=== PATIENT | female | born 1965 | race Caucasian/White ===

== ENCOUNTER 2020-05-13 08:44 | Outpatient (CLI) | payer OTHER, SELFPAY ==
[2020-05-13 10:39] LABS: Alanine Aminotransferase 28 U/L (14-59); Albumin Level 3.9 g/dL (3.4-5.0); Alkaline Phosphatase 46 U/L (46-116); Anion Gap 5 mmol/L (8-16); Aspartate Amino Transferase 21 U/L (15-37); Bilirubin,Total 0.4 mg/dL (0.00-1.00); Blood Urea Nitrogen 14 mg/dL (7-18); Calcium 8.7 mg/dL (8.5-10.1); Carbon Dioxide 30 mmol/L (21-32); Chloride 107 mmol/L (98-108); Cholesterol 180 mg/dL (0-200); Estimated Glomerular Filt Rate > 60; Folic Acid 6.7 ng/mL (8.6->20); Glucose 98 mg/dL (70-99); HDL Direct 93 mg/dL (40-60); Iron 84 ug/dL (50-170); LDL Cholesterol Calculated 81 mg/dL (<130); Osmolality Calculated 294 mOsm/kg (285-295); Percent Iron Saturation 29 % (12-57); Potassium 4.8 mmol/L (3.5-5.1); Sodium 142 mmol/L (136-145); Thyroid Stimulating Hormone 1.71 uIU/mL (0.36-3.74); Total Protein 6.9 g/dL (6.4-8.2); Triglycerides 30 mg/dL (0-150); Vitamin B12 486 pg/mL (193-986)
== END 2020-05-13 08:45 | disposition home or self-care (01) ==
PROVIDERS: PCP Family Medicine; Visit Provider Physician Assistant
DX: Z00.00 Encounter for general adult medical examination without abnormal findings (principal)
CPT/HCPCS: 36415; 80053; 80061; 82607; 82746; 83540; 83550; 84443

== ENCOUNTER 2020-06-07 09:37 | Emergency (ER) | payer OTHER, SELFPAY ==
--- NOTE | ~2020-06-07 | XR_ITS ---
EXAMINATION: XR chest 1V portable DATE: 06/07/2020 10:30 INDICATION: Shortness of breath TECHNIQUE: frontal view of the chest was obtained. COMPARISON: Chest radiograph dated 09/28/2016 FINDINGS: The lungs remain clear with no focal airspace opacities, pulmonary edema, pleural effusion or pneumot horax. The cardiomediastinal silhouette is normal. Visualized bones and soft tissues are unremarkable . IMPRESSION: 1. No acute cardiopulmonary disease. Reviewed, dictated and finalized at location A. CLE DISMANTLER
--- NOTE | 2020-06-07 09:39 | ECG_ITS ---
Measurements Intervals [place] Rate: 69 P: 75 [place]: 168 QRS: 25 QRSD: 98 T: 62 QT: 394 QTc: 422 Interpretive Statements SINUS RHYTHM INCOMPLETE RIGHT BUNDLE BRANCH BLOCK CANNOT RULE OUT SEPTAL INFARCT, AGE INDETERMINATE ABNORMAL ECG Electronically Signed On 06-08-2020 13:42:00 SENIOR TECHNICAL PROGRAM MANAGER by Dorian Corral D.O.
[2020-06-07 09:45] VITALS: BP 179/93; PULSE 73; PULSE 83; RESP 18; TEMP 36.8; O2SAT 100
[2020-06-07] MEDS: KETOROLAC 30 MG/ML VIAL (*BKC) IV PUSH (10:07)
[2020-06-07 10:08] LABS: Basophils Absolute Auto 0.04 K/mm3 (0.00-0.10); Basophils Percent Auto 0.9 % (0.0-1.0); Eosinophils Absolute Auto 0.11 K/mm3 (0.02-0.50); Eosinophils Percent Auto 2.3 % (1.0-6.0); Hematocrit 43.7 % (35.0-49.0); Hemoglobin 14.5 g/dL (12.0-15.0); Immature Granulocyte Absolute 0.01 K/mm3 (0.00-0.00); Immature Granulocyte Percent A 0.2 % (0.0-0.0); Lymphocytes Absolute Auto 1.88 K/mm3 (1.10-4.50); Lymphocytes Percent Auto 40.1 % (18.0-42.0); Mean Corpuscular HGB Conc 33.2 g/dL (32.0-36.0); Mean Corpuscular Hemoglobin 32.7 pg (27.0-31.0); Mean Corpuscular Volume 98.4 fL (78.0-102.0); Mean Platelet Volume 9.7 fl (9.2-11.8); Monocytes Absolute Auto 0.38 K/mm3 (0.10-0.90); Monocytes Percent Auto 8.1 % (2.0-11.0); Neutrophils Absolute Auto 2.3 K/mm3 (1.7-7.2); Neutrophils Percent Auto 48.4 % (50.0-70.0); Platelet Count Result 285 K/mm3 (150-420); Red Blood Count 4.44 M/mm3 (4.20-5.40); Red Cell Distribution Width 11.7 % (11.6-14.4); White Blood Count 4.7 K/mm3 (4.8-10.8)
[2020-06-07 10:12] VITALS: BP 135/75; PULSE 66; RESP 18; O2SAT 100
[2020-06-07 10:25] LABS: D Dimer 0.19 mg/L (0.19-0.50); Partial Thromboplastin Time 25.9 SEC (23.90-30.70); Prothrombin Time 10.6 Seconds (9.50-12.10)
[2020-06-07 10:26] LABS: Alanine Aminotransferase 26 U/L (14-59); Albumin Level 4.2 g/dL (3.4-5.0); Alkaline Phosphatase 51 U/L (46-116); Anion Gap 11 mmol/L (8-16); Aspartate Amino Transferase 18 U/L (15-37); Bilirubin,Total 0.5 mg/dL (0.00-1.00); Blood Urea Nitrogen 13 mg/dL (7-18); Calcium 8.9 mg/dL (8.5-10.1); Carbon Dioxide 27 mmol/L (21-32); Chloride 105 mmol/L (98-108); Estimated CRCL calculation 62 ml/min; Estimated Glomerular Filt Rate > 60; Glucose 90 mg/dL (70-99); Lipase 107 U/L (73-393); Osmolality Calculated 296 mOsm/kg (285-295); SARS-CoV-2 Ag Negative (Negative); Sodium 143 mmol/L (136-145); Total Protein 7.8 g/dL (6.4-8.2)
[2020-06-07 10:27] LABS: Troponin I 4.4 ng/L (0.00-60.4)
--- NOTE | 2020-06-07 10:32 | ED.CHESTPAIN ---
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 Currently she is afebrile satting at 100% on room air with a blood pressure 135/75. Chest pain is reproducible with some palpation. Patient denies any abdominal pain no flank pain no dysuria. MD complaint: chest pain Onset (ago): week(s) Timing of current episode: episodic Prior episodes: Yes Onset: during rest Pain location: substernal Pain radiation: none Severity: moderate Pain scale (0-10): 7 Quality: aching and heaviness Exacerbating factors: nothing Related Data Allergies Allergy/AdvReac Type Severity Reaction Status Date / Time No Known Allergies Allergy Verified 04/28/20 15:05 Review of Systems Review of Systems: All systems reviewed & are unremarkable except as noted in HPI and below PMFSH Past Medical History Medical History Lumbar radiculopathy Family History Family History Sibling Carcinoma of colon Other Family history of emphysema Family history of lung cancer Social History Social History Smoking status: Former smoker (Quit 2003) Second hand tobacco smoke exposure: No Smoking end date: 06/27/03 Alcohol intake: current Drinks per week: 5 Substance use: never Substance use type: does not use Gender identity (if verbalized by the patient): Female Spiritual care concerns: No Agree to blood products: Yes Exam Const: General: cooperative, healthy appearing, comfortable, no acute distress, well developed, alert, awake and Physically active HENMT: Head: normal to inspection General nose exam: Normal external nose present Face and sinus: normal facial exam Mouth: Yes Normal oral and palatal mucosa present Teeth and gingiva: dentition normal and gingiva normal Eyes: General: appearance normal, both eyes and all related structures Eyelids: eyelids normal Conjunctivae: conjunctivae normal Sclera: sclerae normal EOM: EOMs intact bilaterally Neck: Neck: normal visual inspection, full ROM, no lymphadenopathy and no meningeal signs Chest: Chest palpation & inspection: normal inspection of the chest and normal palpation of entire chest wall Resp: Effort & Inspection: normal respiratory effort and able to speak in complete sentences Auscultation: clear to auscultation bilaterally Cardio: Jugular venous distension: no JVD Palpation: normal PMI Rate: regular rate Rhythm: regular rhythm Heart sounds: S1 normal heart sound present GI: Inspection: normal to inspection Percussion: Yes normal to percussion Skin: General skin exam: normal color Neuro: General: oriented to person, oriented to place, oriented to time and patient oriented x3 Extrem: General: normal to inspection, full ROM and capillary refill normal Psych: Appearance: grossly normal and well kempt Mental Status: mental status grossly normal Speech and movement: Normal speech and movement present and Slowed movement present (Neuro) Affect: normal affect Course Course Emergency Course: reassessment of patient pain level has improved patient feels more comfortable blood pressure initially was 179/83 when she 1st walked in, repeat blood pressure 113/67 danielaer reviewed labs x-rays any EKGs with patient and asked her to follow-up with primary care physician. Vital Si
[2020-06-07 10:38] VITALS: BP 113/67; PULSE 72; RESP 18; O2SAT 100
== END 2020-06-07 10:43 | disposition home or self-care (01) ==
PROVIDERS: Emergency Provider Emergency Medicine; PCP Family Medicine
DX: R07.81 Pleurodynia (principal)
CPT/HCPCS: 36415; 71045; 80053; 83690; 84484; 85025; 85380; 85610; 85730; 87040; 87426; 93005; 96374; 99283; 99284; J1885

== ENCOUNTER 2021-05-12 11:39 | Emergency (ER) | payer OTHER, SELFPAY ==
[2021-05-12] VITALS (18 sets, daily range): BP systolic 131–173; BP diastolic 65–89; PULSE 60–81; RESP 16–81; TEMP 36.5–36.6; O2SAT 99–100
--- NOTE | ~2021-05-12 | XR_ITS ---
EXAMINATION: XR chest 2V EXAM DATE: 05/12/2021 12:14 INDICATION: Left-sided chest, back pain. TECHNIQUE: Frontal and lateral projections of the chest obtained and reviewed. Comparison is made to prior examination from 06/07/2020. FINDINGS: There is moderate hyperinflation. The lungs are clear. There are no pleural effusions. T he cardiomediastinal silhouette is within normal limits. There is no pneumothorax suspected. The angela anne marie and soft tissues are unremarkable. IMPRESSION: 1. No acute cardiopulmonary findings. 2. Hyperinflation. Reviewed, dictated and finalized at location B. OYEE OPERATIONS EXAMINER
--- NOTE | 2021-05-12 11:47 | PC.NURSE ---
PT WENT TO BATHROOM IMMEDIATELY AFTER ARRIVAL.
--- NOTE | 2021-05-12 11:54 | ECG_ITS ---
Measurements Intervals [place] Rate: 66 P: 75 [place]: 160 QRS: 27 QRSD: 96 T: 57 QT: 407 QTc: 429 Interpretive Statements SINUS RHYTHM POSSIBLE LEFT ATRIAL ENLARGEMENT INCOMPLETE RIGHT BUNDLE BRANCH BLOCK BASELINE ARTIFACT- II, III, AVR, AVL, AVF BORDERLINE ECG Electronically Signed On 05-12-2021 14:51:08 CRAYON GRADER by Dorian Corral D.O.
[2021-05-12 12:15] LABS: Basophils Percent Auto 0.7 % (0.2-1.2); Hematocrit 42.6 % (37.0-47.0); Hemoglobin 14.5 g/dL (12.0-15.0); Immature Granulocyte Absolute 0.01 K/mm3 (0.00-0.031); Immature Granulocyte Percent A 0.2 % (0-0.5); Lymphocytes Percent Auto 41.8 % (18.3-44.2); Mean Corpuscular Hemoglobin 32.9 pg (26-34); Mean Corpuscular Volume 96.6 fl (80-100); Mean Platelet Volume 9.4 fl (7.4-10.4); Monocytes Absolute Auto 0.3 K/mm3 (0.1-0.6); Monocytes Percent Auto 7.9 % (2.6-8.5); Neutrophils Percent Auto 48.4 % (45.5-73.1); Platelet Count Result 248 k/mm3 (150-375); Red Blood Count 4.41 M/mm3 (4.2-5.4); Red Cell Distribution Width 11.4 % (11.5-14.5); White Blood Count 4.1 K/mm3 (4.5-10.0)
[2021-05-12 12:25] LABS: INR 0.9
[2021-05-12 12:26] LABS: Partial Thromboplastin Time 27.3 SECONDS (22.3-36.8)
[2021-05-12 12:37] LABS: Anion Gap 6 mmol/L (8-16); Blood Urea Nitrogen 16 mg/dL (7-17); Calcium 9.1 mg/dL (8.4-10.2); Carbon Dioxide 29 mmol/L (22-30); Chloride 100 mmol/L (98-107); Estimated CRCL calculation 79 ml/min; Estimated Glomerular Filt Rate > 60; Glucose 100 mg/dL (65-110); Potassium 4.5 mmol/L (3.4-5.0); Sodium 135 mmol/L (137-145)
[2021-05-12 12:47] LABS: Troponin I < 0.012 ng/mL (0.000-0.034)
[2021-05-12 16:36] LABS: Troponin I < 0.012 ng/mL (0.000-0.034)
[2021-05-12 16:41] LABS: D Dimer 0.29 ug/mL (<0.48)
--- NOTE | 2021-05-12 16:53 | ED.CHESTPAIN ---
HPI - Chest Pain General Chief Complaint: Chest Pain Stated Complaint: CP, BACK PAIN, ONSET COUPLE HRS AGO Time Seen by Provider: 05/12/21 16:08 Source: patient Mode of arrival: ambulatory Limitations: no limitations History of Present Illness HPI narrative: 56-year-old female Here for chest pain She complains that she had a brief episode about a week ago Today she notes waking up with chest discomfort present on the left side and to her mid back It has somewhat of a pleuritic component to it, but is more with exhalation than with inhalation Also exacerbated by exercise or movement and relieved by lying down on her right side She does not have nausea or vomiting, shortness of breath or productive cough, fever, or diuresis She is basically healthy, does not smoke, no history of high cholesterol high blood pressure or high blood sugar Related Data Allergies Allergy/AdvReac Type Severity Reaction Status Date / Time No Known Allergies Allergy Verified 05/12/21 15:54 Review of Systems Review of Systems: All systems reviewed & are unremarkable except as noted in HPI and below Constitutional: Constitutional: Reports no additional constitutional complaints, Denies chills, Denies fever(s) and Denies headache(s) Eyes: Eyes: Reports no additional eye complaints and Denies change in vision ENT: Denies headache(s) and Denies sore throat Cardiovascular: Cardiovascular: Reports chest pain, Reports chest pain at rest, Reports chest pain with activity and Denies dyspnea Respiratory: Respiratory: Denies cough, Denies excessive phlegm production, Reports pain on inspiration and Denies dyspnea Gastrointestinal: Gastrointestinal: Denies abdominal pain, Denies diarrhea and Denies vomiting Genitourinary: Genitourinary: Denies urinary frequency and Denies dysuria Musculoskeletal: Musculoskeletal: Denies deformity, Denies arthralgias, Denies joint swelling and Denies numbness Integumentary/Breasts: Skin/Breast: Denies rash and Denies wounds Neurologic: Denies headache(s), Denies focal weakness and Denies numbness Psychiatric: Psychiatric: Reports no additional psychiatric complaints Endocrine: Endocrine: Reports no additional endocrine complaints Hematologic/Lymphatic: Hematologic/Lymphatic: Reports no additional hematologic/lymphatic complaints Allergic/Immunologic: Allergic/Immunologic: Reports no additional allergic/immunologic complaints PMFSH Past Medical History Medical History Lumbar radiculopathy Family History Family History Sibling Carcinoma of colon Other Family history of emphysema Family history of lung cancer Social History Social History Second hand tobacco smoke exposure: No Smoking end date: 06/27/03 Alcohol intake: current Drinks per week: 5 Substance use: never Substance use type: does not use Gender identity (if verbalized by the patient): Female Sexual Orientation (if Verbalized by the Patient): Straight or Heterosexual Spiritual care concerns: No Agree to blood products: Yes Exam Const: General: cooperative, healthy appearing and no acute distress Orientation/consciousness: patient oriented x3 (alert) HENMT: Head: normal to inspection, normocephalic and atraumatic Ears: external ears normal General nose exam: no epistaxis Eyes: Conjunctivae: conjunctivae normal EOM: EOMs intact bilaterally Neck: Neck: normal visual inspection, supple and no JVD Chest: Chest palpation & inspection: normal inspection of the chest, no localized rib tenderness and no tenderness Resp: Effort & Inspection: normal respiratory effort and not labored Auscultation: clear to auscultation bilaterally, no rales, no rhonchi, no wheezes and other (BS =) Cardio: Rate: regular rate Rhythm: regular rhythm Heart sounds: no murmurs GI:
[2021-05-12 19:00] LABS: Troponin I < 0.012 ng/mL (0.000-0.034)
== END 2021-05-12 18:33 | disposition home or self-care (01) ==
PROVIDERS: Emergency Provider Emergency Medicine; PCP Family Medicine
DX: R07.89 Other chest pain (principal); Z87.891 Personal history of nicotine dependence; I45.10 Unspecified right bundle-branch block; R94.31 Abnormal electrocardiogram [ECG] [EKG]
CPT/HCPCS: 36415; 71046; 80048; 84484; 85025; 85380; 85610; 85730; 93005; 99284

== ENCOUNTER 2021-12-16 14:57 | Emergency (ER) | payer OTHER, SELFPAY ==
--- NOTE | ~2021-12-16 | XR_ITS ---
EXAM: [id number] DATE: 12/16/2021 15:21 HISTORY: fall, pain left side ribs mostly lateral aspect . COMPARISON: 05/12/2021. FINDINGS: Lungs are clear. Normal cardiomediastinal silhouette. Normal mineralization. No fracture or dislocation. No lytic or blastic lesion. Joint spaces are maintained. No erosion or periosteal herring e. Soft tissues within normal limits. IMPRESSION: No acute osseous finding in the left ribs. Reviewed, dictated and finalized at location K.
[2021-12-16 15:03] VITALS: BP 156/80; PULSE 70; RESP 16; TEMP 37.6; O2SAT 100
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
== END 2021-12-16 15:40 | disposition home or self-care (01) ==
PROVIDERS: Emergency Provider Nurse Practitioner; PCP Family Medicine
DX: S20.212A Contusion of left front wall of thorax, initial encounter (principal); W54.1XXA Struck by dog, initial encounter; M54.16 Radiculopathy, lumbar region; Z87.891 Personal history of nicotine dependence
CPT/HCPCS: 71101; 99213; G0463

== ENCOUNTER 2022-07-22 10:33 | Outpatient (CLI) | payer OTHER, SELFPAY ==
--- NOTE | ~2022-07-22 | CT_ITS ---
CT Scan of the Chest without Contrast: Clinical Indication: Lung nodule Technique: Contiguous sections were acquired throughout the chest without intravenous contrast. Dose reduction technique was used on this scan by utilizing automated exposure control and iterative recon struction technique. The dose-length product (DLP) was 62.10 mGy-cm. Findings: There is no evidence of any significant mediastinal, hilar or axillary lymphadenopathy. The mediastin al soft tissues appear normal. There is no evidence of pleural or pericardial effusion. The lungs are clear. No pulmonary nodules or infiltrates are noted. Images through the upper abdomen reveal probable hepatic and left renal cysts complex likely left hyd ronephrosis.. Impression: No significant abnormalities seen. No pulmonary nodule identified. Reviewed, dictated and finalized at [facility]. IVING INSPECTOR Impression: No significant abnormalities seen. No pulmonary nodule identified.
== END 2022-07-22 10:34 | disposition home or self-care (01) ==
PROVIDERS: PCP Family Medicine; Visit Provider Family Medicine
DX: R91.1 Solitary pulmonary nodule (principal)
CPT/HCPCS: 71250

== ENCOUNTER 2022-09-07 07:54 | Outpatient (CLI) | payer OTHER, SELFPAY ==
--- NOTE | ~2022-09-07 | MM_ITS ---
EXAMINATION: MM screening sandeep BI w vamshi HISTORY: Screening mammogram TECHNIQUE: Craniocaudal and mediolateral oblique 3-D tomosynthesis images were obtained and synthetic 2-D images were generated. CAD analysis was submitted and interpreted. COMPARISON: No prior mammogram is available for comparison at this institution. BREAST PARENCHYMAL COMPOSITION: There are scattered areas of fibroglandular density. FINDINGS: There is no evidence of suspicious mass, calcification, or architectural distortion to sugg est malignancy in either breast. IMPRESSION: 1. No mammographic evidence of malignancy. 2. Recommend routine screening mammography in one year. BI-RADS Category 1: Negative Reviewed, dictated and finalized at location A.
--- NOTE | ~2022-09-07 | DEXA_ITS ---
Bone Density Report Name: ANNA LINDQUIST Age: 57 Sex: Female Ethnicity: White Date of : 1965 Indication: postmenopausal; screening for osteoporosis; Referring Provider: RON FISHER Study: Bone densitometry was performed. Exam Date: September 07, 2022 Accession number: [id number] Bone Density: Region BMD T-score Z-score Classification AP Spine(L1-L4) 0.945 -0.9 0.4 Normal Femoral Neck (Left) 0.621 -2.1 -0.8 Osteopenia Total Hip (Left) 0.796 -1.2 -0.3 Osteopenia Femoral Neck (Right) 0.661 -1.7 -0.5 Osteopenia Total Hip (Right) 0.827 -0.9 -0.1 Normal Total Hip Mean 0.812 -1.1 -0.2 Osteopenia World Health Organization criteria for BMD impression classify patients as: Normal (T-score at or above -1.0), Osteopenia (T-score between -1.0 and -2.5), or Osteoporosis (T-score at or below -2.5). 10-year Fracture Risk(1): Major Osteoporotic Fracture 9.0% Hip Fracture 1.1% Reported Risk Factors: [place] (), Neck BMD=0.621, BMI=24.0 (1) FRAX(R) Version 3.08. Fracture probability calculated for an untreated patient. Fracture probability may be lower if the patient has received treatment. Clinical Information Provided by Patient: Patient maximum height was 65 Menopause Age: 51 Drinks caffeinated beverages Onset of menses at age 11 Number of children 2 Impression: The patient has low bone mass, based on the Left Femoral Neck T-score. The patient has an estimated ten-year risk of hip fracture of 1.1% and an estimated ten-year risk of major fracture of 9%, based on the WHO FRAX algorithm. Discussion: BONE DENSITY IS LOW AT ONE OR MORE SKELETAL SITES. This patient's lowest T-score is low at one or more skeletal sites. It meets the World Health Organization's (WHO) criteria for ?low bone mass? (T-score between -1.0 and -2.5). The patient's 10-year risk of fracture as calculated by FRAX is less than the threshold where pharmacological therapy is recommended by the National Osteoporosis Foundation (NOF). However, all treatment decisions require clinical judgment and consideration of individual patient factors, including patient preferences, comorbidities, previous drug use, risk factors not captured in the FRAX model (e.g., frailty, falls, vitamin D deficiency, increased bone turnover, interval significant decline in bone density) and possible under or overestimation of fracture risk by FRAX. The patient should follow a healthful lifestyle (good nutrition with adequate calcium and vitamin D, and appropriate weight-bearing exercise). Follow-Up: Consider repeating this study in 2 to 3 years to reassess this patient's status, or sooner if there is some new clinical indication. Reported by: WILLEM on 09/07/2022 8:24:00 AM. Reviewed, dictate
== END 2022-09-07 07:55 | disposition home or self-care (01) ==
PROVIDERS: PCP Family Medicine; Visit Provider Family Medicine
DX: Z12.31 Encounter for screening mammogram for malignant neoplasm of breast (principal); Z78.0 Asymptomatic menopausal state; M85.89 Other specified disorders of bone density and structure, multiple sites
CPT/HCPCS: 77063; 77067; 77080

== ENCOUNTER 2023-04-28 07:36 | Outpatient (CLI) | payer OTHER, SELFPAY ==
[2023-04-28 08:18] LABS: Alanine Aminotransferase 23 U/L (14-59); Albumin Level 3.4 g/dL (3.4-5.0); Alkaline Phosphatase 57 U/L (46-116); Anion Gap 7 mmol/L (8-16); Aspartate Amino Transferase 14 U/L (15-37); Bilirubin,Total 0.3 mg/dL (0.00-1.00); Blood Urea Nitrogen 19 mg/dL (7-18); Carbon Dioxide 31 mmol/L (21-32); Chloride 106 mmol/L (98-108); Cholesterol 195 mg/dL (0-200); Estimated Glomerular Filt Rate > 60; Glucose 86 mg/dL (70-99); HDL Direct 74 mg/dL (40-60); LDL Cholesterol Calculated 109 mg/dL (<130); Osmolality Calculated 299 mOsm/kg (285-295); Potassium 4.6 mmol/L (3.5-5.1); Sodium 144 mmol/L (136-145); Total Protein 6.4 g/dL (6.4-8.2); Triglycerides 62 mg/dL (0-150)
== END 2023-04-28 07:37 | disposition home or self-care (01) ==
LOC: CHSLAB 07:38
PROVIDERS: PCP Family Medicine; Visit Provider Physician Assistant Medical
DX: E78.2 Mixed hyperlipidemia (principal)
CPT/HCPCS: 36415; 80053; 80061

== ENCOUNTER 2023-05-05 07:44 | Outpatient (CLI) | payer OTHER, SELFPAY ==
[2023-05-05 08:34] LABS: Alanine Aminotransferase 27 U/L (14-59); Albumin Level 3.4 g/dL (3.4-5.0); Alkaline Phosphatase 61 U/L (46-116); Anion Gap 9 mmol/L (8-16); Aspartate Amino Transferase 17 U/L (15-37); Bilirubin,Total 0.5 mg/dL (0.00-1.00); Blood Urea Nitrogen 18 mg/dL (7-18); Carbon Dioxide 28 mmol/L (21-32); Chloride 104 mmol/L (98-108); Estimated Glomerular Filt Rate > 60; Glucose 100 mg/dL (70-99); Osmolality Calculated 293 mOsm/kg (285-295); Potassium 4.3 mmol/L (3.5-5.1); Sodium 141 mmol/L (136-145); Total Protein 6.4 g/dL (6.4-8.2)
== END 2023-05-05 07:45 | disposition home or self-care (01) ==
LOC: CHSLAB 07:45
PROVIDERS: PCP Family Medicine; Visit Provider Physician Assistant Medical
DX: E78.2 Mixed hyperlipidemia (principal)
CPT/HCPCS: 36415; 80053

== ENCOUNTER 2023-06-08 00:10 | Day surgery (SDC) | payer OTHER, SELFPAY ==
[2023-05-25 12:13] VITALS: BMI 23.0
--- NOTE | 2023-06-06 11:37 | SUR.PREOP ---
Patient called regarding upcoming procedure. Message left on patient's voicemail regarding preop instructions, appointment times, and procedure prep.
[2023-06-08 09:00] VITALS: BP 138/72; PULSE 77; RESP 18; TEMP 36.5; O2SAT 100; BMI 23.3
[2023-06-08] MEDS: LACTATED RINGERS 1,000 ML 150 ML IV CONT (09:20)
--- NOTE | 2023-06-08 10:06 | P.PNAN_ITS ---
Anes - Initial Pre Proc Eval Procedure: Operation Date: 06/08/23 10:00 Proposed Procedures p Screening Colonoscopy - Destin Mckay MD Date/Time: 06/08/23 10:06 Surgeon: Destin Mckay MD Pre Op Diagnosis: neoplasm screening Patient Data Age: 58 Gender: F Height: 1.65 m Weight: 63.7 kg Last Vital Signs Temp 97.7 F 06/08/23 09:00 Pulse 77 06/08/23 09:00 Resp 18 06/08/23 09:00 BP 138/72 06/08/23 09:00 Pulse Ox 100 06/08/23 09:00 O2 Del Method Room Air 06/08/23 09:00 Allergies Allergy/AdvReac Type Severity Reaction Status Date / Time No Known Allergies Allergy Verified 06/08/23 09:08 Home Medications Medication Instructions Recorded Confirmed Type tramadol 50 mg tablet 50 mg PO Q6H PRN pain #90 tabs 05/16/23 06/08/23 Rx Patient hx anesthesia problems: none Family hx anesthesia problems: none Results Review: All pre-operative results and documents have been reviewed as part of the pre- operative evaluation. [facility] Past Medical History Medical History Lumbar radiculopathy Family History Family History Sibling Carcinoma of colon Other Family history of emphysema Family history of lung cancer Social History Social History (Updated 07/07/22 @ 09:04 by Heidi Yu CMA) Smoking status: Former smoker Tobacco type: cigarettes Second hand tobacco smoke exposure: No Smoking end date: 06/27/03 Alcohol intake: current Drinks per week: 5 Alcohol use details: 3 nights a week Substance use: never Substance use type: does not use Lack of Transportation: No Lack of Food: Never True Current Housing: I Have Housing Concerned About Future Housing: No Difficulty Paying Gas/Electric Bills: No Difficulty Paying for Meds: No Currently Unemployed: No Education: Trade/Vocational Certificate Difficulty w/ Childcare or Family Care: No Living arrangements: with family Occupation/Education: occupation Gender identity (if verbalized by the patient): Female Sexual Orientation (if Verbalized by the Patient): Straight or Heterosexual Spiritual care concerns: No Agree to blood products: Yes Anes - Eval Final PreProcedure Day of Procedure 06/08/23 10:06 Patient weight: normal Heart: regular rate and rhythm Lungs: clear to auscultation Airway: Mallampati scale class II Neurological: alert and oriented Last oral intake: >/= 8 hours ASA classification: II Emergent: no Anesthetic plan: proceed Anesthesia type and monitoring: general GIVS and standard monitoring Results Review: All pre-operative results and documents have been reviewed as part of the pre- operative evaluation. Informed Consent: The patient's anesthetic plan and its attendant risks and benefits were discussed with the patient/family/POA. Questions were solicited and answers provided to the satisfaction of the patient/family/POA.
--- NOTE | 2023-06-08 10:08 | PM.HPGS ---
History of Present Illness History of Present Illness Consent: Risks, benefits, and alternatives have been discussed and questions answered. Patient agrees to proceed with procedure. Chief complaint: neoplasm screening Narrative: Taylor Murphy is a 58 year old female with last colonoscopy 5 years ago, sister had colon cancer Review of Systems Constitutional: Constitutional: Denies headache(s) and Denies weakness Eyes: Eyes: Denies blurry vision ENT: Reports Normal hearing present, Denies headache(s) and Denies neck pain Cardiovascular: Cardiovascular: Denies chest pain and Denies dyspnea Respiratory: Respiratory: Denies dyspnea Gastrointestinal: Gastrointestinal: Reports no additional gastrointestinal complaints Genitourinary: Genitourinary: Denies dysuria Musculoskeletal: Musculoskeletal: Denies neck pain Integumentary/Breasts: Skin/Breast: Denies dry skin Neurologic: Reports Normal hearing present, Denies headache(s) and Denies weakness Psychiatric: Psychiatric: Denies anxiety Endocrine: Endocrine: Denies change in body appearance Hematologic/Lymphatic: Hematologic/Lymphatic: Denies easy bleeding Allergic/Immunologic: Allergic/Immunologic: Denies urticaria PMFSH Past Medical History Medical History (Updated 06/08/23 @ 10:09 by Destin Mckay MD) Family history of colon cancer Lumbar radiculopathy Family History Family History Sibling Carcinoma of colon Other Family history of emphysema Family history of lung cancer Social History Social History (Updated 07/07/22 @ 09:04 by Heidi Yu CMA) Smoking status: Former smoker Tobacco type: cigarettes Second hand tobacco smoke exposure: No Smoking end date: 06/27/03 Alcohol intake: current Drinks per week: 5 Alcohol use details: 3 nights a week Substance use: never Substance use type: does not use Lack of Transportation: No Lack of Food: Never True Current Housing: I Have Housing Concerned About Future Housing: No Difficulty Paying Gas/Electric Bills: No Difficulty Paying for Meds: No Currently Unemployed: No Education: Trade/Vocational Certificate Difficulty w/ Childcare or Family Care: No Living arrangements: with family Occupation/Education: occupation Gender identity (if verbalized by the patient): Female Sexual Orientation (if Verbalized by the Patient): Straight or Heterosexual Spiritual care concerns: No Agree to blood products: Yes Meds Home Medications and Allergies Home Medications Medication Instructions Recorded Confirmed Type tramadol 50 mg tablet 50 mg PO Q6H PRN pain #90 tabs 05/16/23 06/08/23 Rx Allergies Allergy/AdvReac Type Severity Reaction Status Date / Time No Known Allergies Allergy Verified 06/08/23 09:08 Vital Signs Vital Signs - 24 hr 06/08/23 09:00 Temperature 97.7 F Pulse Rate 77 Respiratory Rate 18 Blood Pressure 138/72 Pulse Oximetry 100 Oxygen Delivery Room Air Exam Const: General: comfortable and no acute distress HENMT: Face/Nose/Sinus: Normal nares present Eyes: General: appearance normal, both eyes and all related structures Neck: Neck: no JVD Resp: Auscultation: clear to auscultation bilaterally Cardio: Rate: regular rate Rhythm: regular rhythm GI: Inspection: non-distended GI Palp: Yes Soft to palpation Skin: General skin exam: normal color Neuro: General: gait normal Speech: normal speech Extrem: General: normal to inspection Psych: Mental Status: mental status grossly normal Assessment and Plan Assessment and plan (1) Family history of colon cancer: Code(s): Z80.0 - Family history of malignant neoplasm of digestive organs Status: Acute Assessment and Plan: colonoscopy
[2023-06-08 10:29] VITALS: BP 115/81; PULSE 79; RESP 18; O2SAT 100
[2023-06-08 10:39] VITALS: BP 125/76; PULSE 80; RESP 20; O2SAT 100
[2023-06-08 10:49] VITALS: BP 118/76; PULSE 77; RESP 18; O2SAT 100
== END 2023-06-08 11:00 | disposition home or self-care (01) ==
PROVIDERS: PCP Family Medicine; Visit Provider Internal Medicine Gastroenterology
PROC: 0DJD8ZZ Inspection of Lower Intestinal Tract, Via Natural or Artificial Opening Endoscopic (ICD-10-PCS; CPT 45378; principal; 2023-06-08 10:00)
DX: Z12.11 Encounter for screening for malignant neoplasm of colon (principal); K64.8 Other hemorrhoids; Z87.891 Personal history of nicotine dependence
CPT/HCPCS: 45378; J7120

== ENCOUNTER 2025-01-28 09:30 | Outpatient (CLI) | payer BC, SELFPAY ==
--- OUTSIDE RECORDS SUMMARY | 2025-01-28 09:43 | XMS_ITS | Clinical Summary ---
Author Organization [facility] Address [address] [place] [id number] Care Team Providers Care Filler Shaker Name Role Phone Unknown, Notinfile Primary Care Provider Unavail able Allergies Active Allergy Reactions Criticality Noted Date Comments Brimonidine Eye irritation Medium 04/20/2021 Medications traMADoL (ULTRAM) 50 mg tablet TAKE 1 TABLET BY MOUTH EVERY 6 TO 8 HOURS NEEDED FOR PAIN 1 Active bepotastine besilate 1.5 % dropsIndications:A llergic Conjunctivitis Administer 1 drop into affected eye(s) 2 (two) times a day 5 mL 1 1 Active loteprednol (LOTEMAX) 0.5 % ophthalmic suspension Administer 1 drop into both eyes 2 (two) times a day 5 mL 1 Active Active Problems Problem Noted Date Diagnosed Date Acute follicular conjunctivitis of both eyes Assessment & Plan (04/20/2021 2:05 PM CDT): Secondary to Brimonidine Dc Lumify Maxitrol drops (gtts) QID both eyes (OU) FU 1 week Cool compresses No other meds Assessment & Plan (01/20/2021 9:51 AM CDT): Patient called and little improvement on lotemax. Add bepreve, continue lotemax. If no improvement in 2-3 days, RTC for visit Assessment & Plan (01/12/2021 9:23 AM CDT): Viral conjuncitivits vs chronic allergic No cornea involvement both eyes (OU), anterior chamber (AC) quiet both eyes (OU) Patient already has Rx for lotemax from nurse practitioner (GARNISHMENT SPECIALIST) Stop pink eye drops (gtts) OK to still use Lumify every day (qd) Start Lotemax QID, if no improvement by end of the week will RTC Enlarged lymph nodes 07/16/2020 Breast cancer screening 07/16/2020 Encounter for screening colonoscopy 03/09/2018 Overview (03/09/2018): Added automatically from request for surgery [id number] Family hx of colon cancer 03/09/2018 Overview (03/09/2018): Added automatically from request for surgery [id number] Surgical History Surgery Date Site/Laterality Comments UTERINE FIBROID SURGERY Uterine Surgery - ablation (Added by TW Conv) TUBAL LIGATION SINUS SURGERY 06/27/2015 - 06/26/2016 [facility] MYOMECTOMY Medical History Medical History Date Comments Personal history of other di seases of the female genital tract History of menorrhagia - (Ad ded by TW Conv) Family History Medical History Relation Name Comments Lung cancer Father Family history of lung cancer - (Added by TW Conv) Lung cancer Mother Colon cancer Sister 1 Lung cancer Sister 2 Relation Name Status Comments Father Mother Sister 1 Sister 2 Social History Tobacco Use Types Packs/Day Years Used Date Smoking Tobacco: Former Cigarettes 2 24 0 07/14/1987 - 07/14/2011 Smokeless Tobacco: Never Alcohol Use Standard Drinks/Week Comments Yes 1 (1 standard drink = 0.6 oz pur e alcohol) Comments No Sex and Gender Information Value Date Recorded Sex Assigned at Not on file Legal Sex Female 10:13 AM TECHNICAL SERVICES SPECIALIST Gender Identity Not on file Sexual Orientation Not on file Obstetrics History Para Term AB IAB SAB Ectopic Multiple Livin g Live Births 2 2 2 Date Outcome GA Total Labor Labor/2nd/3rd Weight Sex Type Anes PTL June A1 A5 Name Clin 1987 Term 40w0d 1995 Term 40w0d Last Filed Vital Signs Vital Sign Reading Time Taken Comments Blood Pressure 117/74 07/16/2020 4:13 PM TECHNICAL SERVICES SPECIALIST Pulse 50 04/17/2018 11:40 AM CDT Temperature 36.8 C (98.3 F) 04/17/2018 11:40 AM CDT Respiratory Rate 16 04/17/2018 11:40 AM CDT Oxygen Saturation 100% 04/17/2018 11:40 AM CDT Inhaled Oxygen Concentration - - Weight 62.3 kg (137 lb 6 oz) 07/16/2020 4:13 PM TECHNICAL SERVICES SPECIALIST Height 165.1 cm (5' 5) 07/16/2020 4:13 PM TECHNICAL SERVICES SPECIALIST Body Mass Index 22.86 07/16/2020 4:13 PM TECHNICAL SERVICES SPECIALIST Plan of Treatment Not on file Insurance [facility] [employer] Address: [facility] [id number] [place] [address] [facility] Advance Directives For more information, please contact: [phone] * Full Code (Latest Code Status on File) Date Activated Date Inactivated Comments 04/17/2018 10:23 AM 04/17/2018 2:14 PM * Full Code Date Activated Date Inactivated Comments 04/17/2018 10:23 AM 04/17/2018 10:23 AM Care Teams Filler Shaker Relationship Specialty Start Date End Date Unknown, Notinfile PCP - General 04/20/21
--- OUTSIDE RECORDS SUMMARY | 2025-01-28 09:43 | XMS_ITS | Referral Summary ---
Author Organization [facility] Address [address] [place] [id number] Care Team Providers Care Carpenter Assistant Installer Name Role Phone Unknown, Notinfile Primary Care [...] has Rx for lotemax from nurse practitioner (ASSOCIATE DIRECTOR OF NURSING) Stop pink eye drops (gtts) OK to still use Lumify every day (qd) Start Lotemax QID, if no improvement by end of the week will RTC Enlarged lymph nodes 07/16/2020 Breast cancer screening 07/16/2020 Encounter for screening colonoscopy 03/09/2018 Overview (03/09/2018): Added automatically from request for surgery [id number] Family hx of colon cancer 03/09/2018 Overview (03/09/2018): Added automatically from request for surgery [id number] Social History Tobacco Use Types Packs/Day Years Used Date Smoking Tobacco: Former Cigarettes 2 24 0 07/14/1987 - 07/14/2011 Smokeless Tobacco: Never Alcohol Use Standard Drinks/Week Comments Yes 1 (1 standard drink = 0.6 oz pur e alcohol) Comments No Sex and Gender Information Value Date Recorded Sex Assigned at Not on file Legal Sex Female 10:13 AM ALUMINUM SIDING MECHANIC Gender Identity Not on file Sexual Orientation Not on file Last Filed Vital Signs Vital Sign Reading Time Taken Comments Blood Pressure 117/74 07/16/2020 4:13 PM ALUMINUM SIDING MECHANIC Pulse 50 04/17/2018 11:40 AM CDT Temperature 36.8 C (98.3 F) 04/17/2018 11:40 AM CDT Respiratory Rate 16 04/17/2018 11:40 AM CDT Oxygen Saturation 100% 04/17/2018 11:40 AM CDT Inhaled Oxygen Concentration - - Weight 62.3 kg (137 lb 6 oz) 07/16/2020 4:13 PM ALUMINUM SIDING MECHANIC Height 165.1 cm (5' 5) 07/16/2020 4:13 PM ALUMINUM SIDING MECHANIC Body Mass Index 22.86 07/16/2020 4:13 PM ALUMINUM SIDING MECHANIC Plan of Treatment Not on file Insurance [facility] [employer] Address: [address] [place] [address] [employer] Advance Directives For more information, please contact: [phone] * Full Code (Latest Code Status on File) Date Activated Date Inactivated Comments 04/17/2018 10:23 AM 04/17/2018 2:14 PM * Full Code Date Activated Date Inactivated Comments 04/17/2018 10:23 AM 04/17/2018 10:23 AM Care Teams Carpenter Assistant Installer Relationship Specialty Start Date End Date Unknown, Notinfile PCP - General 04/20/21
--- OUTSIDE RECORDS SUMMARY | 2025-01-28 09:43 | XMS_ITS | Clinical Summary ---
Author Organization [facility] Address [address], [address] [address] Phone Care Team Providers Care Bioinformatics Team Member Name Role Phone Jessica Pagan MD Primary Care Provi davy Allergies No known active allergies Medications No known medications Family History Medical History Relation Name Comments Cancer Father lung Emphysema Mother Cancer Sister 1 colon Cancer Sister 2 colon Relation Name Status Comments Father Mother Sister 1 Sister 2 Social History Tobacco Use Types Packs/Day Years Used Date Smoking Tobacco: Former Cigarettes Q uit: 03/06/2008 Smokeless Tobacco: Never Alcohol Use Standard Drinks/Week Comments Yes 6 (1 standard drink = 0.6 oz pur e alcohol) Comments Unknown Sex and Gender Information Value Date Recorded Sex Assigned at Not on file Legal Sex Female 11:16 AM CDT Gender Identity Not on file Sexual Orientation Not on file Last Filed Vital Signs Vital Sign Reading Time Taken Comments Blood Pressure - - Pulse - - Temperature - - Respiratory Rate - - Oxygen Saturation - - Inhaled Oxygen Concentration - - Weight 60.8 kg (134 lb) 03/06/2018 3:00 PM CDT Height 165.1 cm (5' 5) 03/06/2018 3:00 PM CDT Body Mass Index 22.3 03/06/2018 3:00 PM CDT Plan of Treatment Health Maintenance Due Date Last Done Comments Hepatitis C Virus (HCV) Screening 1965 TdaP Immunization 1965 Pap Smear 02/05/1985 Cervical Cancer Screening (CCS) 02/05/1994 HPV/Cotest 02/05/1994 Cologuard 02/05/2009 Colonoscopy 02/05/2009 Colorectal Cancer Screening 02/05/2009 Immunochemical Fecal Occult Blood 02/05/2009 Pneumococcal Immunization (5 0+ years) (1 of 1 - PCV) 02/05/2014 Zoster Immunization (1 of 2) 02/05/2014 SARS-COV-2 Immunization (2023-25 season) 2024 Influenza Immunization (#1) 2025 Respiratory Syncytial Virus (RSV) Immunization (Adult) (1 - 1-dose 75+ series) 02/05/2039 Hepatitis B Immunization Aged Out No longer eligible based on patient's age to complete this topic Human Papillomavirus (HPV) Immunization Aged Out No longer eligible b ased on patient's age to complete this topic Meningococcal Immunization (ACWY) Aged Out No longer eligible based on patient's age to complete this topic Rotavirus Immunization Aged Out No lo nger eligible based on patient's age to complete this topic Care Teams Bioinformatics Team Member Relationship Specialty Start Date End Date Jessica Pagan MD [address] [place] [address] PCP - General Family Medicine 02/13/18
[2025-01-28 10:55] LABS: Alanine Aminotransferase 24 U/L (6-35); Albumin Level 4.2 g/dL (3.5-5.1); Alkaline Phosphatase 44 U/L (38-126); Aspartate Amino Transferase 33 U/L (14-36); Bilirubin,Total 0.6 mg/dL (0.2-1.3); Blood Urea Nitrogen 14 mg/dL (7-17); Calcium 8.5 mg/dL (8.4-10.2); Carbon Dioxide 28 mmol/L (22-30); Cholesterol 181 mg/dL (0-200); Estimated Glomerular Filt Rate > 60; Glucose 81 mg/dL (65-110); HDL Direct 83 mg/dL; Total Protein 6.4 g/dL (6.3-8.2); Triglycerides 44 mg/dL (<150)
[2025-01-28 12:09] LABS: Anion Gap 5 mmol/L (4-12); Chloride 108 mmol/L (98-107); Osmolality Calculated 291 mOsm/kg (285-295); Potassium 4.2 mmol/L (3.4-5.0); Sodium 141 mmol/L (137-145)
== END 2025-01-28 09:31 | disposition home or self-care (01) ==
LOC: CHSLAB 09:31
PROVIDERS: PCP Family Medicine; Visit Provider Student in an Organized Health Care Education/Training Program
DX: Z00.00 Encounter for general adult medical examination without abnormal findings (principal); Z13.220 Encounter for screening for lipoid disorders
CPT/HCPCS: 36415; 80053; 80061

== ENCOUNTER 2025-04-23 16:25 | Outpatient (CLI) | payer BC, SELFPAY ==
--- NOTE | ~2025-04-23 | XR_ITS ---
EXAMINATION: XR hip BI 2V w AP pelvis, 04/23/2025 16:30 CDT HISTORY: BILATERAL HIP PAIN, NKI COMPARISON: No comparisons available. Findings: No acute fracture or malalignment. No significant degenerative changes. Soft tissues unremarkable. Impression: No acute fracture or malalignment. Reviewed, dictated and finalized at location P. Impression: No acute fracture or malalignment.
--- OUTSIDE RECORDS SUMMARY | 2025-04-23 17:54 | XMS_ITS | Clinical Summary ---
Author Organization [facility] Address [address], [address] [address] Phone Care Team Providers Care Structural Steel Equipment Erector Name Role Phone Jessica Pagan MD Primary Care Provi davy Allergies No known active allergies Medications No known medications Family History Medical History Relation Name Comments Cancer Father lung Emphysema Mother Cancer Sister 1 colon Cancer Sister 2 colon Relation Name Status Comments Father Mother Sister 1 Sister 2 Social History Tobacco Use Types Packs/Day Years Used Date Smoking Tobacco: Former Cigarettes 1 Q uit: 03/06/2008 Smokeless Tobacco: Never Alcohol [...] 02/05/2014 Zoster Immunization (1 of 2) 02/05/2014 Influenza Immunization (#1) 2025 SARS-COV-2 Immunization ( season) 2025 Respiratory Syncytial Virus (RSV) Immunization (Adult) [...] age to complete this topic Care Teams Structural Steel Equipment Erector Relationship Specialty Start Date End Date Jessica Pagan MD [address] [place] [address] PCP - General Family Medicine 02/13/18
--- OUTSIDE RECORDS SUMMARY | 2025-04-23 17:54 | XMS_ITS | Clinical Summary ---
Author Organization [facility] Address [address] [place] [phone] Care Team Providers Care Guide Dog Mobility Instructor Name Role Phone Unknown, Notinfile Primary Care [...] has Rx for lotemax from nurse practitioner (LIVING SKILLS ADVISOR) Stop pink eye drops (gtts) OK to still use Lumify every day (qd) Start Lotemax QID, if no improvement by end of the week will RTC Enlarged lymph nodes 07/16/2020 Breast cancer screening 07/16/2020 Encounter for screening colonoscopy 03/09/2018 Overview (03/09/2018): Added automatically from request for surgery [id number] Family hx of colon cancer 03/09/2018 Overview (03/09/2018): Added automatically from request for surgery [id number] Surgical History Surgery Date Site/Laterality Comments UTERINE [...] on file Legal Sex Female 10:13 AM PANEL MACHINE TENDER Gender Identity Not on file Sexual Orientation [...] Comments Blood Pressure 117/74 07/16/2020 4:13 PM PANEL MACHINE TENDER Pulse 50 04/17/2018 11:40 AM CDT Temperature 36.8 C (98.3 F) 04/17/2018 11:40 AM CDT Respiratory Rate 16 04/17/2018 11:40 AM CDT Oxygen Saturation 100% 04/17/2018 11:40 AM CDT Inhaled Oxygen Concentration - - Weight 62.3 kg (137 lb 6 oz) 07/16/2020 4:13 PM PANEL MACHINE TENDER Height 165.1 cm (5' 5) 07/16/2020 4:13 PM PANEL MACHINE TENDER Body Mass Index 22.86 07/16/2020 4:13 PM PANEL MACHINE TENDER Plan of Treatment Not on file Insurance [email or web address] Advance Directives For more information, please contact: [phone] * Full Code (Latest Code Status on File) Date Activated Date Inactivated Comments 04/17/2018 10:23 AM 04/17/2018 2:14 PM * Full Code Date Activated Date Inactivated Comments 04/17/2018 10:23 AM 04/17/2018 10:23 AM Care Teams Guide Dog Mobility Instructor Relationship Specialty Start Date End Date Unknown, Notinfile PCP - General 04/20/21
== END 2025-04-23 16:26 | disposition home or self-care (01) ==
LOC: CHSIMG 16:25
PROVIDERS: PCP Family Medicine
DX: M25.551 Pain in right hip (principal); M25.552 Pain in left hip
CPT/HCPCS: 73521

== ENCOUNTER 2025-05-17 14:04 | Outpatient (CLI) | payer BC, SELFPAY ==
--- NOTE | ~2025-05-17 | DEXA_ITS ---
Bone Density Report Name: ANNA LINDQUIST Age: 60 Sex: Female Ethnicity: White Date of : 1965 Indication: osteopenia; Referring Provider: ELIZABETH JURADO Study: Bone densitometry was performed. Exam Date: May 17, 2025 Accession number: [id number] Bone Density: Region BMD T-score Z-score Classification AP Spine(L1-L4) 0.966 -0.7 0.8 Normal Femoral Neck (Left) 0.610 -2.2 -0.8 Osteopenia Total Hip (Left) 0.826 -0.9 0.1 Normal Femoral Neck (Right) 0.653 -1.8 -0.4 Osteopenia Total Hip (Right) 0.831 -0.9 0.1 Normal Total Hip Mean 0.829 -0.9 0.1 Normal World Health Organization criteria for BMD impression classify patients as: Normal (T-score at or above -1.0), Osteopenia (T-score between -1.0 and -2.5), or Osteoporosis (T-score at or below -2.5). 10-year Fracture Risk(1): Major Osteoporotic Fracture 10.0% Hip Fracture 1.5% Reported Risk Factors: [place] (), Neck BMD=0.610, BMI=23.2 (1) FRAX(R) Version 3.08. Fracture probability calculated for an untreated patient. Fracture probability may be lower if the patient has received treatment. Previous Exams: Region Exam Age BMD T-score BMD Change BMD Change Date g/cm2 vs Baseline vs Previous AP Spine (L1-L4) 05/17/2025 60 0.966 -0.7 0.020 (2.2%) 0.020 (2.2%) 09/07/2022 57 0.945 -0.9 Total Hip(Left) 05/17/2025 60 0.826 -0.9 0.030 (3.8%)* 0.030 (3.8%)* 09/07/2022 57 0.796 -1.2 Total Hip(Right) 05/17/2025 60 0.831 -0.9 0.004 (0.5%) 0.004 (0.5%) 09/07/2022 57 0.827 -0.9 *Denotes significance at 95% confidence level, LSC for AP Spine = 0.022 g/cm2, LSC for Total Hip = 0.027 g/cm2 Clinical Information Provided by Patient: Patient maximum height was 65 Menopause Age: 51 Drinks caffeinated beverages Onset of menses at age 11 Number of children 2 Impression: The patient has low bone mass, based on the Left Femoral Neck T-score. The patient has an estimated ten-year risk of hip fracture of 1.5% and an estimated ten-year risk of major fracture of 10%, based on the WHO FRAX algorithm. No significant bone loss was observed. Discussion: BONE DENSITY IS LOW AT ONE OR MORE SKELETAL SITES. This patient's lowest T-score is low at one or more skeletal sites. It meets the World Health Organization's (WHO) criteria for ?low bone mass? (T-score between -1.0 and -2.5). The patient's 10-year risk of fracture as calculated by FRAX is less than the threshold where pharmacological therapy is recommended by the National Osteoporosis Foundation (NOF). However, all treatment decisions require clinical judgment and consideration of individual patient factors, including patient preferences, comorbidities, previous drug use, risk factors not captured in the FRAX model (e.g., frailty, falls, vitamin D deficiency, increased bone turnover, interval significant decline in bone density) and possible under or overestimation of fracture risk by FRAX. The patient should follow a healthful lifestyle (good nutrition with adequate calcium and vitamin D, and appropriate weight-bearing exercise). Follow-Up: Consider repeating this study in 2 to 3 years to reassess this patient's status, or sooner if there is some new clinical indication. Reported by: MIRYAM on 05/17/2025 2:56:00 PM. Reviewed, dictated and finalized at location A.
--- NOTE | ~2025-05-17 | MM_ITS ---
EXAMINATION: MM screening sandeep BI w vamshi HISTORY: Screening TECHNIQUE: Craniocaudal and mediolateral oblique 3-D tomosynthesis images were obtained and synthetic 2-D images were generated. CAD analysis was submitted and interpreted. COMPARISON: 09/07/2022 BREAST PARENCHYMAL COMPOSITION: Not dense: There are scattered areas of fibroglandular density. FINDINGS: There is no evidence of suspicious mass, calcification, or architectural distortion to suggest malignancy in either breast. There has been no suspicious interval change. IMPRESSION: 1. No mammographic evidence of malignancy. 2. Recommend routine screening mammography in one year. BI-RADS Category 1: Negative Reviewed, dictated and finalized at location O. ICE ADMINISTRATOR
--- OUTSIDE RECORDS SUMMARY | 2025-05-17 14:08 | XMS_ITS | Clinical Summary ---
Author Organization [facility] Address [address], [address] [address] Phone Care Team Providers Care Cook Fruit Name Role Phone Jessica Pagan MD Primary [...] age to complete this topic Care Teams Cook Fruit Relationship Specialty Start Date End Date Jessica Pagan MD [address] [place] [address] PCP - General Family Medicine 02/13/18
--- OUTSIDE RECORDS SUMMARY | 2025-05-17 14:08 | XMS_ITS | Clinical Summary ---
Author Organization [facility] Address [address] [place] [phone] Care Team Providers Care Crusher Screen Repairer Name Role Phone Unknown, Notinfile Primary Care [...] has Rx for lotemax from nurse practitioner (SHINGLE SHEARING MACHINE OPERATOR) Stop pink eye drops (gtts) OK to still use Lumify every day (qd) Start Lotemax QID, if no improvement by end of the week will RTC Enlarged lymph nodes 07/16/2020 Breast cancer screening 07/16/2020 Encounter for screening colonoscopy 03/09/2018 Overview (03/09/2018): Added automatically from request for surgery [id number] Family hx of colon cancer 03/09/2018 Overview (03/09/2018): Added automatically from request for surgery [id number] Surgical History Surgery Date Site/Laterality Comments UTERINE [...] on file Legal Sex Female 10:13 AM BURRER MACHINE Gender Identity Not on file Sexual Orientation [...] Comments Blood Pressure 117/74 07/16/2020 4:13 PM BURRER MACHINE Pulse 50 04/17/2018 11:40 AM CDT Temperature 36.8 C (98.3 F) 04/17/2018 11:40 AM CDT Respiratory Rate 16 04/17/2018 11:40 AM CDT Oxygen Saturation 100% 04/17/2018 11:40 AM CDT Inhaled Oxygen Concentration - - Weight 62.3 kg (137 lb 6 oz) 07/16/2020 4:13 PM BURRER MACHINE Height 165.1 cm (5' 5) 07/16/2020 4:13 PM BURRER MACHINE Body Mass Index 22.86 07/16/2020 4:13 PM BURRER MACHINE Plan of Treatment Not on file Insurance [facility] [employer] Address: [facility] [id number] [place] [address] [facility] Advance Directives For more information, please contact: [phone] * Full Code (Latest Code Status on File) Date Activated Date Inactivated Comments 04/17/2018 10:23 AM 04/17/2018 2:14 PM * Full Code Date Activated Date Inactivated Comments 04/17/2018 10:23 AM 04/17/2018 10:23 AM Care Teams Crusher Screen Repairer Relationship Specialty Start Date End Date Unknown, Notinfile PCP - General 04/20/21
== END 2025-05-17 14:05 | disposition home or self-care (01) ==
LOC: ANHFOHIMG 14:05
PROVIDERS: PCP Family Medicine; Visit Provider Student in an Organized Health Care Education/Training Program
DX: Z12.31 Encounter for screening mammogram for malignant neoplasm of breast (principal); M85.89 Other specified disorders of bone density and structure, multiple sites
CPT/HCPCS: 77063; 77067; 77080